=== PATIENT | female | born 1985 | race Caucasian/White ===

== ENCOUNTER 2023-09-07 21:45 | Emergency (ER) | payer OTHER, SELFPAY ==
[2023-09-07 21:48] VITALS: BP 122/80
[2023-09-07 22:04] LABS: % Basophils 0.2 % (0-2); % Eosinophils 0.7 % (0-6); % Immature Granulocytes 0.4 % (0-0.5); % Lymphocytes 4.8 % (20.5-51.1); % Monocytes 3.7 % (1.7-9.3); % Neutrophils 90.2 % (42.2-75.2); Absolute Eosinophils 0.1 10^3/uL (0-0.7); Absolute Lymphocytes 0.5 10^3/uL (1.2-3.4); Absolute Monocytes 0.4 10^3/uL (0.1-0.6); Absolute Neutrophils 9.4 10^3/uL (1.4-6.5); Hematocrit 40.3 % (37.0-47.0); Hemoglobin 14.4 g/dL (12.0-16.0); Mean Corp Hgb Conc. 35.7 g/dL (33.0-37.0); Mean Corpuscular Hgb 31.9 pg (27.0-31.0); Mean Corpuscular Volume 89.4 fL (81.0-99.0); Nucleated Red Blood Cells % 0 %; Platelet Count 147 10^3/uL (130-400); Red Blood Cell Count 4.51 10^6/uL (4.20-5.40); Red Cell Dist. Width 12.3 % (11.5-14.5); White Blood Cell Count 10.4 10^3/uL (4.8-10.8)
[2023-09-07 22:16] LABS: HCG, Serum Qualitative Screen Negative
[2023-09-07 22:19] LABS: ALT (SGPT) 13 U/L (0-35); AST (SGOT) 24 U/L (14-36); Albumin 4.4 g/dl (3.5-5.0); Alkaline Phosphatase 66 U/L (38-126); Blood Urea Nitrogen 14 mg/dl (7-17); Calcium 8.9 mg/dl (8.4-10.2); Carbon Dioxide 25 mmol/L (22-30); Chloride 104 mmol/L (98-107); Glucose 120 mg/dl (70-99); Lipase 60 U/L (23-300); Sodium 133 mmol/L (135-145); Total Bilirubin 0.8 mg/dl (0.2-1.3); eGFR > 60.00
[2023-09-07] MEDS: MORPHINE SULFATE 4 MG IV (23:06)
[2023-09-07 23:14] LABS: Urine Albumin Negative (Neg - Trace); Urine Bilirubin Negative (Negative); Urine Character Clear (Clear); Urine Color Yellow; Urine Glucose Negative (Negative); Urine Ketone Trace (Negative); Urine Leukocyte Negative (Negative); Urine Nitrite Negative (Negative); Urine Occult Blood Negative (Negative); Urine Specific Gravity 1.015 (<1.030); Urine Urobilinogen Negative (Neg - 1+)
[2023-09-07] MEDS: PHENERGAN 51 MG IV (23:20)
[2023-09-07 23:22] VITALS: BP 115/64
--- NOTE | 2023-09-08 00:23 | ED.GENMED ---
History of Present Illness
<MARA Duarte - Last Filed: 09/08/23 03:10>
General
Chief Complaint: Abdominal Pain
Source: patient
Exam Limitations: none
Time Seen by Provider: 09/07/23 22:58
Nursing documentation reviewed up to this point in time: agreed with
Travel History
Have you had any contact with someone who has COVID-19?: No
Do you have any symptoms of coronavirus? Fever > 100 degrees, chills, cough, shortness of breath, sore throat, loss of taste or smell, muscle aches, or headache?: No
History of Present Illness
History of Present Illness:
38 y/o F presents to ED complaining of RUQ pain since 1699. Patient reports pain come on suddenly and is radiating to her upper back. She reports she was moaning and very uncomfortable. Patient has also had multiple episode of nonbloody diarrhea
since onset of symptoms along with associated nausea. Patient has been dry heaving but has not vomited. She is also reporting a severe headache. Patient reports position change does not help with pain. She has not taken any medications for her pain.
She denies chest pain, palpitations, hematemesis, bloody diarrhea, or vomiting.
If applicable-neuro sx onset
Onset of symptoms known: Yes
Date of onset of symptoms: 09/07/23
Time of onset of symptoms: 17:00
Review of Systems
<MARA Duarte - Last Filed: 09/08/23 03:10>
Review of Systems
Allergies reviewed?: Yes
All Other Systems: ROS reviewed and negative except as documented in HPI and ROS
Constitutional: Reports no symptoms
EENT: Reports no symptoms
Respiratory: Reports no symptoms
Cardiac: Reports no symptoms
ABD/GI: Reports abdominal pain, nausea and diarrhea
: Reports no symptoms
Musculoskeletal: Reports no symptoms
Skin: Reports no symptoms
Neurological: Reports no symptoms
Endocrine: Reports no symptoms
Hematologic/Lymphatic: Reports no symptoms
Psychiatric: Reports no symptoms
Phy Exam
<MARA Duarte - Last Filed: 09/08/23 03:10>
General Physical Exam
General Presentation: well appearing and mild distress
General age: appears stated age
General Skin: warm and dry
General Habitus: normal
General Mental: alert
General Hydration: appears well hydrated
Cardiovascular Exam
Cardiovascular Exam: regular rate/rhythm, no edema, no gallop, no murmur and normal peripheral pulses
Pulmonary Exam
Pulmonary Exam: lungs clear, no respiratory distress, no rales, no crackles and no rhonchi
Gastrointestinal Exam
Gastrointestinal Exam: normal bowel sounds, soft, non distended, cva tenderness (right sided) and tender (moderate tenderness in RUQ, mildly tender in epigastric )
Neurological Exam
Neurological Exam: alert and oriented x3
Skin Exam
Skin Exam: normal color, warm/dry and no rash
Psychiatric Exam
Psychiatric Exam: normal mood/affect
Course
<MARA Duarte - Last Filed: 09/08/23 03:10>
Orders/Labs/Results
Orders:
Orders
09/07/23 21:53
Test Result ONCE
09/07/23 21:57
Complete Blood Count/With Diff Urgent
Comprehensive Metabolic Panel Urgent
HCG, Serum Qualitative Screen Urgent
Lipase Urgent
09/07/23 22:58
Morphine Sulfate 4 mg IV NOW STA
Prochlorperazine [Compazine] 10 mg IV NOW STA
US Abdomen Complete/Upper Urgent
Comment:
Reason For Exam: ruq pain
09/07/23 23:04
Promethazine [Phenergan] 25 mg 0.9% Sodium Chloride 50 ml [Nss] 50 ml IV NOW
09/07/23 23:09
Urinalysis Reflex To Culture Urgent
Date Specimen was Collected: 09/07/23
Time Specimen was Collected: 22:38
09/08/23 00:48
ECG [Electrocardiogram (*1)] Urgent
Reason for Study: Abdominal Pain
EKG [Electrocardiogram (*1)] Urgent
Reason for Study: Abdominal Pain
CT Abd/pelvis W Iv Cont Urgent
Comment:
Reason For Exam: Right abd and flank pain
EKG- Treatment ONCE
Abnormal Lab Results
09/07/23 09/07/23
21:57 23:09
MCH 31.9 H pg
(27.0-31.0)
Absolute Neuts (auto) 9.4 H 10^3/uL
(1.4-6.5)
Absolute Lymphs (auto) 0.5 L 10^3/uL
(1.2-3.4)
Neutrophils % 90.2 H %
(42.2-75.2)
Lymphocytes % 4.8 L %
(20.5-51.1)
Sodium 133 L mmol/L
(135-145)
Glucose 120 H mg/dl
(70-99)
Urine Ketones Trace A
(Negative)
09/07/23 21:57
09/07/23 21:57
Vital Signs
Initial and Last Documented VS:
Initial Vital Signs
Temp Pulse Resp BP Pulse Ox
99.1 F 107 19 122/80 100
09/07/23 21:48 09/07/23 21:48 09/07/23 21:48 09/07/23 21:48 09/07/23 21:48
Last Documented Vital Signs
Temp Pulse Resp BP Pulse Ox
99.1 F 82 19 114/70 96
09/07/23 21:48 09/08/23 01:54 09/08/23 01:54 09/08/23 01:00 09/08/23 01:45
<Jose De Jesus Ramsey, DO - Last Filed: 09/08/23 01:52>
Orders/Labs/Results
Orders:
Orders
09/07/23 21:53
Test Result ONCE
09/07/23 21:57
Complete Blood Count/With Diff Urgent
Comprehensive Metabolic Panel Urgent
HCG, Serum Qualitative Screen Urgent
Lipase Urgent
09/07/23 22:58
Morphine Sulfate 4 mg IV NOW STA
Prochlorperazine [Compazine] 10 mg IV NOW STA
US Abdomen Complete/Upper Urgent
Comment:
Reason For Exam: ruq pain
09/07/23 23:04
Promethazine [Phenergan] 25 mg 0.9% Sodium Chloride 50 ml [Nss] 50 ml IV NOW
09/07/23 23:09
Urinalysis Reflex To Culture Urgent
Date Specimen was Collected: 09/07/23
Time Specimen was Collected: 22:38
09/08/23 00:48
ECG [Electrocardiogram (*1)] Urgent
Reason for Study: Abdominal Pain
EKG [Electrocardiogram (*1)] Urgent
Reason for Study: Abdominal Pain
CT Abd/pelvis W Iv Cont Urgent
Comment:
Reason For Exam: Right abd and flank pain
EKG- Treatment ONCE
Abnormal Lab Results
09/07/23 09/07/23
21:57 23:09
MCH 31.9 H pg
(27.0-31.0)
Absolute Neuts (auto) 9.4 H 10^3/uL
(1.4-6.5)
Absolute Lymphs (auto) 0.5 L 10^3/uL
(1.2-3.4)
Neutrophils % 90.2 H %
(42.2-75.2)
Lymphocytes % 4.8 L %
(20.5-51.1)
Sodium 133 L mmol/L
(135-145)
Glucose 120 H mg/dl
(70-99)
Urine Ketones Trace A
(Negative)
09/07/23 21:57
09/07/23 21:57
Vital Signs
Initial and Last Documented VS:
Initial Vital Signs
Temp Pulse Resp BP Pulse Ox
99.1 F 107 19 122/80 100
09/07/23 21:48 09/07/23 21:48 09/07/23 21:48 09/07/23 21:48 09/07/23 21:48
Last Documented Vital Signs
Temp Pulse Resp BP Pulse Ox
99.1 F 82 19 114/70 96
09/07/23 21:48 09/08/23 01:54 09/08/23 01:54 09/08/23 01:00 09/08/23 01:45
<MARA Duarte - Last Filed: 09/08/23 03:10>
MDM/Problems Addressed
Differential Diagnosis Includes:
Cholecystitis/Biliary colic
Pyelonephritis
Nephrolithiasis
SBO
Viral gastro
<MARA Duarte - Last Filed: 09/08/23 03:10>
*Critical Care Note
Total Time (30-74mins, 75-104mins- exclusive of procedures): Not Applicable
ED Attending Note
<MARA Duarte - Last Filed: 09/08/23 03:10>
-
Portions of this chart may have been created with voice recognition software.� Occasional wrong word or��sound alike� substitutions may have occurred due to the inherent limitations of voice recognition software.
<Jose De Jesus Ramsey DO - Last Filed: 09/08/23 01:52>
ED Attending Note
Patient seen and examined by attending physician: Yes
I performed the substantive portion of visit, reviewed & personally made and approve the management plan that is documented in note by myself or ZURDO.: Yes
ED Attending Note:
Pleasant 38-year-old female presents with right upper quadrant abdominal pain for the last 5 hours. She states that the pain came on suddenly and radiated to her upper back. Patient received morphine which relieved her pain. Patient has been
having episodes of nonbloody, watery diarrhea for the last few days. She does have dry heaving without actual vomiting. Patient was seen in conjunction with the PA student. I have reviewed and agree with the history and treatment plan presented.
On my independent physical exam, patient is awake, alert, and oriented x3, after morphine patient not complaining of any abdominal pain. Good bowel sounds x 4 quadrants. She does have right CVA tenderness.
Vital signs are stable. Patient not hypoxic
Nursing note reviewed. I agree with nursing documentation up to this point in time.
Home Meds and allergies reviewed.
NUMBER AND COMPLEXITY OF PROBLEMS ADDRESSED AT THE ENCOUNTER
� Chronic conditions affecting care: None
� Acute Exacerbation and/or Progression of Chronic Illness:
� Differential Diagnosis includes: Biliary colic, GERD, constipation,
AMOUNT AND/OR COMPLEXITY OF DATA TO BE REVIEWED AND ANALYZED
I performed an independent evaluation of the following and my interpretation is:
EKG:
CT:CT ABDOMEN/PELVIS WITH CONTRAST
IMPRESSION:
1. Mildly prominent loops of small bowel within the central abdomen likely represents underlying enteritis. Small free fluid in the deep pelvis.
2. No bowel obstruction. Normal gallbladder and appendix.
Incidentals:
- No obstructive uropathy.
- No hepatic or pancreatic mass.
- No abdominal aortic aneurysm.
- No acute osseous abnormality.
- No acute abnormality within the visualized lungs.
- No acute abnormality within the visualized soft tissues.
X-rays:
ULTRASOUND ABDOMEN
IMPRESSION:
Normal gallbladder. No gallstones, gallbladder wall thickening, or pericholecystic fluid. Negative sonographic Sands's sign.
No biliary ductal dilatation. The visualized common duct measures 4 mm in caliber.
Normal liver, spleen, and partially visualized pancreas.
Normal bilateral kidneys. No hydronephrosis.
Laboratory Studies: Normal LFTs including T. bili, AST, ALT, negative
Other:
Review of other/old records:
Clinical information was obtained by an independent historian:
Prescriptions/Medications Considered but not given:
Further testing considered but not performed:
RISK OF COMPLICATIONS AND/OR MORBIDITY OR MORTALITY OF PATIENT MANAGEMENT
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
Discussion with other providers:
Escalation of care including admission/observation vs risk of discharge considered:
CRITICAL CARE NOTE:
Total Time (exclusive of procedures):
Update:
Discharge Plan
Departure
Patient Disposition: Home (Routine Discharge)
Date of Disposition: 09/08/23
Time of Disposition: 01:50
Patient with high blood pressure during this ER visit?: No
Discharge Problem:
Enteritis, Abdominal pain
Instructions: Norovirus (DC), Abdominal Pain
Prescriptions:
New
promethazine 12.5 mg tablet
12.5 mg PO TID Qty: 10 0RF
Referrals:
Ken Perry DO [Family Provider] -
Activity Restrictions/Additional Instructions:
It was a pleasure meeting you and taking part in your care. We hope for your continued healing and wellness.
Please read discharge instructions in their entirety. However, they are for general education and may not describe your exact diagnosis at discharge. Information on your ER visit and medical conditions were discussed with you along with appropriate
follow up information...
If indicated, please take your medications as instructed and indicated on discharge paperwork.
Please schedule a follow up appointment as directed. Call to schedule an appointment
Please return to the emergency department with ANY change in, persisting, or worsening of symptoms. If any of your symptoms do not improve, or persist, or become more severe within 6-12 hours, please return to the emergency department for further
care.
Please return to the emergency department if you develop a headache, neck pain/stiffness, fever greater than 100.4F, chest pain, shortness of breath, persistent nausea, vomiting, slurred speech, difficulty walking, numbness/tingling, weakness, signs
of infection or any other symptoms that are worrisome to you.
If you have any questions or concerns please do not hesitate to call the Hospital at or E-mail me directly at [email or web address]
Interventions
Interventions:
*Risk Screen - Suicide Last Done: 09/07/23 21:48
*General Assessment Last Done: 09/07/23 21:48
*Neglect/Abuse Screening Last Done: 09/07/23 21:48
ED- Fall Risk Assessment Last Done: 09/07/23 23:10
*ED COVID-19 Vaccine History Last Done: 09/07/23 21:48
*Nursing Disposition Last Done: 09/08/23 01:54
[facility]-Ymujvd-Ygrsvvdpck Assessment Last Done: 09/07/23 23:10
Discharge Date and Time
Discharge Date/Time: 09/08/23 02:01
[2023-09-08 00:33] VITALS: BP 119/65
[2023-09-08 00:35] VITALS: BP 119/65
[2023-09-08 01:00] VITALS: BP 114/70
== END 2023-09-08 02:01 | disposition home or self-care (01) ==
LOC: EMR 21:45
PROVIDERS: Emergency Medicine; EMERGENCY PHYSICIAN Student in an Organized Health Care Education/Training Program; FAMILY PHYSICIAN Family Medicine
DX: R10.11 Right upper quadrant pain (principal); K52.9 Noninfective gastroenteritis and colitis, unspecified
CPT/HCPCS: 99285; 96365; 96375; 74177; 76700; 80053; 81003; 83690; 84703; 85025; 93005; Q9967

== ENCOUNTER 2023-09-09 17:32 | Day surgery (SDC) | payer OTHER, SELFPAY ==
[2023-09-09] VITALS (18 sets, daily range): BP systolic 88–126; BP diastolic 54–95
--- NOTE | 2023-09-09 13:47 | ED.GENMED ---
History of Present Illness
General
Chief Complaint: Abdominal Pain
Source: patient
Exam Limitations: none
Time Seen by Provider: 09/09/23 13:27
Nursing documentation reviewed up to this point in time: agreed with
Travel History
Have you had any contact with someone who has COVID-19?: No
Do you have any symptoms of coronavirus? Fever > 100 degrees, chills, cough, shortness of breath, sore throat, loss of taste or smell, muscle aches, or headache?: No
History of Present Illness
History of Present Illness:
Patient was seen in ED on 09/07 for report of right abdominal pain. Initial CT reading : MIldly prominent loops of small bowel within the central abdomen likely representing enteritis. Normal gallbladder and appendix (Night radiology). CT read by
radialogy in the AM: MIld soft tissue thickening at the posterior inferior cecal margin which may be related to underdistention. Slightly thickened adjacent/contijuous appendix cannot be entirely excluded. Rcommeding ruling out early
appendicitis. Patient notified by PCP to return to ED. She reports her abdominal pain has improved. Now with right lower back pain. Temp max 99. Still with nausea. No vomiting or diarrhea. No pain with urination however she was placed on
Macrobid by PCP on the for suspected UTI. Missed dose today. Brought to ED by spouse for eval.
Past History
Past History
ED Past Medical History: Psychiatric (anxiety)
Review of Systems
Review of Systems
Allergies reviewed?: Yes
All Other Systems: ROS reviewed and negative except as documented in HPI and ROS
Constitutional: Reports no symptoms
EENT: Reports no symptoms
Respiratory: Reports no symptoms
Cardiac: Reports no symptoms
ABD/GI: Reports abdominal pain (Mild right sided abd. pain, right low back pain)
: Reports no symptoms
Musculoskeletal: Reports no symptoms
Skin: Reports no symptoms
Neurological: Reports no symptoms
Psychiatric: Reports no symptoms
Phy Exam
General Physical Exam
General Presentation: mild distress (States 'i just feel crappy')
General age: appears stated age
General Skin: warm
General Habitus: normal
General Mental: alert
Cardiovascular Exam
Cardiovascular Exam: regular rate/rhythm and no edema
Pulmonary Exam
Pulmonary Exam: lungs clear and no respiratory distress
Gastrointestinal Exam
Gastrointestinal Exam: normal bowel sounds, soft, no organomegaly, no pulsatile mass, non distended and cva tenderness (right)
Palpation: left upper quadrant: No tenderness, left lower quadrant: No tenderness, right upper quadrant: Minimal tenderness and right lower quadrant: Minimal tenderness
Musculoskeletal Exam
Musculoskeletal Exam: full ROM and neuro vasc intact
Skin Exam
Skin Exam: normal color, warm/dry and no rash
Psychiatric Exam
Psychiatric Exam: normal mood/affect
Course
Orders/Labs/Results
Orders:
Orders
09/09/23 14:00
Complete Blood Count/With Diff Urgent
Comprehensive Metabolic Panel Urgent
Lipase Urgent
Urinalysis Reflex To Culture Urgent
Date Specimen was Collected: 09/09/23
Time Specimen was Collected: 13:48
0.9% Sodium Chloride 500 ml [Nss] 500 ml IV BOLUS
09/09/23 15:54
Piperacillin/Tazo 3.375 Gram [Zosyn] 3.375 gram in 50 ml IV NOW
09/09/23 16:27
Diphenhydramine [Benadryl] 25 mg IV PACU-ONCEPRN PRN
HYDROmorphone [Dilaudid] 0.25 mg IV PACU-Q5MPRN PRN
HYDROmorphone [Dilaudid] 0.5 mg IV PACU-Q5MPRN PRN
Meperidine [Demerol] 12.5 mg IV PACU-Q5MPRN PRN
Notify MD As Directed
Notify physician if: for SDS patients with known or suspected sleep obstructive sleep apnea, monitor in the
PACU.
Notify MD for any apneic/desaturation episodes
O2 Therapy [RESP] Urgent
Titrate/Wean O2 to maintain O2 sat greater than (%): 92
Special Instructions: -Provide supplemental oxygen to achieve O2 sat of 92% or greater.
-After 15 min, may wean O2 and discontinue if patient is able to maintain O2 sat of 92%
or greater during recovery period.
If patient is a discharge home, without oxygen therapy, notify anestheiologist if
unable to maintain O2 SAT of 92% or greater on room air for MD clearance.
09/09/23 16:30
Normosol (Mult Electrolytes) [Normosol-R] 1,000 ml IV PER PROTOCOL
09/09/23 16:47
Code Status As Directed
Resuscitation Status: Full Code
HYDROmorphone [Dilaudid] 0.5 mg IV Q2HPRN PRN
Activity As Directed
Activity Level: Out of Bed-Early Mobility
Intake/ Output As Directed
Frequency: Per unit guidelines
Vital Signs As Directed
Frequency: Per unit guidelines
09/09/23 16:49
Promethazine [Phenergan] 6.25 mg 0.9% Sodium Chloride 50 ml [Nss] 50 ml IV Q4HPRN
09/09/23 16:50
Level of Care Change As Directed
Level of Care: Post Proc/Surg Recovery
Physician / Group: Dr. Fisher
Diagnosis: Acute appendicitis
Reason for Overnight Stay: Standard of Care
NPO
Allow oral meds: Yes
Allow clear liquids: No
09/09/23 17:00
Normosol (Mult Electrolytes) [Normosol-R] 1,000 ml IV 75 mls/hr
09/09/23 18:00
Acetaminophen [Tylenol] 650 mg PO Q6
09/09/23 19:44
Lidocaine 2% Mpf [Xylocaine Mpf 2%] 100 mg .ROUTE .STK-MED ONE
Ondansetron Injectable [Zofran] 4 mg .ROUTE .STK-MED ONE
Propofol [Diprivan] 20 ml .ROUTE .STK-MED
09/09/23 19:48
Fentanyl Citrate/Pf [Sublimaze] 100 mcg .ROUTE .STK-MED ONE
09/09/23 19:49
Midazolam HCl [Versed] 2 mg .ROUTE .STK-MED ONE
09/09/23 20:46
Dexamethasone Sod Phosphate [Decadron] 20 mg .ROUTE .STK-MED ONE
Famotidine [Pepcid] 20 mg .ROUTE .STK-MED ONE
09/09/23 20:47
Rocuronium [place] [Rocuronium] 50 mg .ROUTE .STK-MED ONE
09/09/23 20:55
OR Pathology Routine
Pre-Operative Diagnosis: acute appendiitis
Post-Operative Diagnosis: same
Operative Procedure: laparoscopic appendectomy
Surgeon: kuldip
Circulating Nurse: santa
Specimen Type: appendix
09/09/23 20:58
HYDROmorphone [Dilaudid] 1 mg .ROUTE .STK-MED ONE
09/09/23 21:10
Sugammadex Sodium [Bridion] 200 mg .ROUTE .STK-MED ONE
09/09/23 21:50
HYDROmorphone [Dilaudid] 0.5 mg .ROUTE .STK-MED ONE
09/09/23 22:00
Piperacillin/Tazo 3.375 Gram [Zosyn] 3.375 gram in 50 ml IV Q6H
09/10/23 03:08
Simethicone [Mylicon] 80 mg PO QIDPRN PRN
09/10/23 05:32
Complete Blood Count/With Diff IN AM
09/10/23 05:33
Basic Metabolic Panel IN AM
09/10/23 Breakfast
Regular
At Your Request: Full Participation
09/10/23 06:41
Discharge Patient As Directed
Discharge patient after: breakfast
Is patient a candidate for the influenza vaccine?: No
Month/Year vaccine administered for 3055-6417 flu season: 3551-7596 Season/Unsure
Do you have a designated caregiver: Yes-same as spokesperson
Abnormal Lab Results
09/09/23 09/10/23 09/10/23
14:00 05:32 05:33
WBC 4.0 L 10^3/uL 3.4 L 10^3/uL
(4.8-10.8) (4.8-10.8)
RBC 3.98 L 10^6/uL 3.96 L 10^6/uL
(4.20-5.40) (4.20-5.40)
Hct 36.0 L % 35.9 L %
(37.0-47.0) (37.0-47.0)
MCH 31.9 H pg 31.8 H pg
(27.0-31.0) (27.0-31.0)
Plt Count 125 L 10^3/uL
(130-400)
MPV 10.5 H fL
(7.4-10.4)
Absolute Lymphs (auto) 0.6 L 10^3/uL
(1.2-3.4)
Neutrophils % 80.4 H %
(42.2-75.2)
Lymphocytes % 17.0 L %
(20.5-51.1)
Monocytes % 12.3 H %
(1.7-9.3)
Sodium 134 L mmol/L
(135-145)
Potassium 3.2 L mmol/L
(3.5-5.1)
Glucose 100 H mg/dl 123 H mg/dl
(70-99) (70-99)
Calcium 8.3 L mg/dl 7.9 L mg/dl
(8.4-10.2) (8.4-10.2)
Total Protein 6.0 L g/dl
(6.3-8.2)
Urine Ketones Trace A
(Negative)
09/10/23 05:32
09/10/23 05:33
Vital Signs
Initial and Last Documented VS:
Initial Vital Signs
Temp Pulse Resp BP Pulse Ox
99 F 94 16 126/95 98
09/09/23 13:19 09/09/23 13:19 09/09/23 13:19 09/09/23 13:19 09/09/23 13:19
Last Documented Vital Signs
Temp Pulse Resp BP Pulse Ox
98.1 F 63 18 120/71 100
09/10/23 07:46 09/10/23 07:46 09/10/23 07:46 09/10/23 07:46 09/10/23 07:46
*Radiology
Radiology exam reviewed: radiology read reviewed
*Pulse Oximetry
Patient hypoxic: no
*Critical Care Note
Total Time (30-74mins, 75-104mins- exclusive of procedures): Not Applicable
Update Note
Update Note:
Patient seen in dept by Dr. Urbina. Will admit to his service. To OR tonight for acute appendicitis.
ED Attending Note
-
Portions of this chart may have been created with voice recognition software.� Occasional wrong word or��sound alike� substitutions may have occurred due to the inherent limitations of voice recognition software.
Discharge Plan
Departure
Patient Disposition: Admit
Date of Disposition: 09/09/23
Time of Disposition: 15:55
Admit to: OR
Presentation/result/management discussed w/ accepting /DO: Carlitos
Patient with high blood pressure during this ER visit?: No
Discharge Problem:
Acute appendicitis
Interventions
Interventions:
*Risk Screen - Suicide Last Done: 09/09/23 13:19
*General Assessment Last Done: 09/09/23 13:19
*Neglect/Abuse Screening Last Done: 09/09/23 13:19
ED- Fall Risk Assessment Last Done: 09/09/23 14:12
*ED COVID-19 Vaccine History Last Done: 09/09/23 13:39
*Nursing Disposition Last Done: 09/09/23 19:30
[facility]-Dradhj-Howumkxblr Assessment Last Done: 09/09/23 15:47
Discharge Date and Time
Discharge Date/Time: 09/09/23 19:30
[2023-09-09] MEDS: NSS 500 IV (14:07)
[2023-09-09 14:16] LABS: % Basophils 0.3 % (0-2); % Eosinophils 2.3 % (0-6); % Immature Granulocytes 0.3 % (0-0.5); % Lymphocytes 30.2 % (20.5-51.1); % Monocytes 12.3 % (1.7-9.3); % Neutrophils 54.6 % (42.2-75.2); Absolute Eosinophils 0.1 10^3/uL (0-0.7); Absolute Lymphocytes 1.2 10^3/uL (1.2-3.4); Absolute Monocytes 0.5 10^3/uL (0.1-0.6); Absolute Neutrophils 2.2 10^3/uL (1.4-6.5); Hemoglobin 12.7 g/dL (12.0-16.0); Mean Corp Hgb Conc. 35.3 g/dL (33.0-37.0); Mean Corpuscular Hgb 31.9 pg (27.0-31.0); Mean Corpuscular Volume 90.5 fL (81.0-99.0); Mean Platelet Volume 10.4 fL (7.4-10.4); Nucleated Red Blood Cells % 0 %; Platelet Count 125 10^3/uL (130-400); Red Blood Cell Count 3.98 10^6/uL (4.20-5.40); Red Cell Dist. Width 12.4 % (11.5-14.5)
[2023-09-09 14:18] LABS: Urine Albumin Trace (Neg - Trace); Urine Bilirubin Negative (Negative); Urine Character Clear (Clear); Urine Color Yellow; Urine Glucose Negative (Negative); Urine Ketone Trace (Negative); Urine Leukocyte Negative (Negative); Urine Nitrite Negative (Negative); Urine Occult Blood Negative (Negative); Urine Specific Gravity 1.015 (<1.030); Urine Urobilinogen Negative (Neg - 1+)
[2023-09-09 14:27] LABS: ALT (SGPT) 12 U/L (0-35); AST (SGOT) 20 U/L (14-36); Albumin 3.6 g/dl (3.5-5.0); Alkaline Phosphatase 57 U/L (38-126); Blood Urea Nitrogen 12 mg/dl (7-17); Calcium 8.3 mg/dl (8.4-10.2); Carbon Dioxide 27 mmol/L (22-30); Chloride 107 mmol/L (98-107); Glucose 100 mg/dl (70-99); Lipase 63 U/L (23-300); Potassium 3.2 mmol/L (3.5-5.1); Sodium 135 mmol/L (135-145); Total Bilirubin 0.3 mg/dl (0.2-1.3); eGFR > 60.00
[2023-09-09] MEDS: ZOSYN 50 IV ×2 (16:22→21:57)
--- NOTE | 2023-09-09 16:32 | HPS.HSE ---
Family Physician
-
Family Physician: Ken Perry
Chief Complaint
-
Abdominal pain
History of Present Illness
This is a 38-year-old female who presents with a 3-day history of right-sided abdominal pain initially thought to be more right upper quadrant radiating to her back. There was some associated nausea as well as nonbloody diarrhea. She was seen in
emergency department and a CT scan was performed but read as normal. The scan was read reviewed by one of our daytime radiologist who saw some concerning inflammation at the base of the cecum concerning for possible appendicitis and so the patient
was contacted and asked to return to the emergency department for further evaluation. Overall she states that her pain is improved but she still has pain rating to her lower back. The patient denies Fever though does endorse a high-grade temp +99
at home, Chest Pain, Shortness Of Breath, Vomiting, changes in urinary habits, unintentional weight loss, jaundice, icterus, acolic stools. She has never had a colonoscopy and she denies any family history of IBD.
Medical History
Past Medical History
Past Medical History: Reports None
Past Surgical History: Reports
Social History
Tobacco: Non-smoker
Alcohol: Occasional
Personal:
Living: With Family
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
Family History
Family History: Not pertinent
Allergies / Home Medications
Allergies reflects when Allergies were last updated in [facility].
Home Medications with original date entered in [employer]
Allergy/Medication List:
No known drug allergies.
Review of Systems
-
A 12 point ROS was completed and negative except as noted: Yes
Physical Exam
Vital Signs
Vital Signs
Temp Pulse Resp BP Pulse Ox
99 F 94 16 126/95 98
09/09/23 13:19 09/09/23 13:19 09/09/23 13:19 09/09/23 13:19 09/09/23 13:19
Physical Exam
General: Well Developed
HEENT: NormoCephalic
Respiratory: Non Labored Respirations
GI: Soft, Non Distended and Tender (Mildly tender to palpation in the right lower quadrant. No rebound or guarding.)
Laboratory Results
-
09/09/23 14:00
09/09/23 14:00
Laboratory Results
Total Bilirubin 0.3 mg/dl (0.2-1.3) 09/09/23 14:00
AST 20 U/L (14-36) 09/09/23 14:00
ALT 12 U/L (0-35) 09/09/23 14:00
Alkaline Phosphatase 57 U/L (38-126) 09/09/23 14:00
Lipase 63 U/L (23-300) 09/09/23 14:00
Data Reviewed
-
CT Scan: Image Personally Visualized and interpreted, Report Reviewed by me, Discussed with Patient and Discussed with Family
Ultrasound: Image Personally Visualized and interpreted, Report Reviewed by me, Discussed with Patient and Discussed with Family
Lab Data: Labs Reviewed by me
Impression/Plan
-
IMPRESSION: This is a 38-year-old female who presents with likely acute appendicitis
PLAN: Will admit for postoperative recovery.
N.p.o., IV fluids, IV Zosyn.
Will plan for a laparoscopic appendectomy.
Risks/Benefits/Alternatives, expected postoperative course and possible complications (bleeding, infection, injury to surrounding structures, acute/chronic pain) discussed at length. Patient wishes to proceed with surgery. All questions answered.
Consent obtained.
I spent roughly 75 minutes in total for the care of this patient today including direct patient care and counseling, reviewing labs, imaging, coordination of care, as well as documentation.
--- NOTE | 2023-09-09 21:27 | W.SUR.PREOP ---
Pre-Operative Surgical Note
-
I have examined this patient prior to the performance of the scheduled procedure.
The patient's condition is unchanged from the time of the current History and
Physical and the patient is able to undergo the scheduled procedure.
--- NOTE | 2023-09-09 21:27 | W.IMMPOSTOP ---
Surgical Immed Post Op Note
-
Primary Surgeon: Fabrizio Fisher MD
Assisting Surgeon: None
Pre-op Diagnosis: Acute appendicitis
Post-op Diagnosis: Same
Procedure Performed: Laparoscopic appendectomy
Anesthesia Type: General
Specimen / Cultures: Appendix
Estimated Blood Loss: 1 cc
Complications: None
Operative Findings: Fairly normal-appearing appendix, slightly inflamed at the tip. No other intra-abdominal abnormalities noted other than some scar tissue with small bowel adhesions to her scar.
POST OP PLAN:
Imaging: None
Labs: Routine AM
Diet: Advance to Regular as tolerated
Analgesia: Tylenol 650mg q6 Maynor, Gauri 5mg q6 PRN, Dilaudid 0.5mg q2h PRN
Neuro/vascular checks: q4h
AC/AP: Hold Therapeutic AC, Ok for DVT PPx
Activity: Ad Michelle
Wound/Incisions/Drains: Routine
Abx: Continue Zosyn x 1 dose
Dispo: RNF, anticipate discharge home tomorrow.
--- NOTE | 2023-09-09 21:28 | OR.RPT ---
Operative Report
Operative Report
Patient Name: Sandra Stevenson
: 1985
Date of Operation: 09/09/2023
Preoperative Diagnosis: Acute Appendicitis
Postoperative Diagnosis: Same
Procedure(s):
Laparoscopic Appendectomy
Surgeon(s):
Dr. Fisher
Insole Buffer(s):
None
Anesthesia: General
Estimated Blood Loss: 1 cc
Urine Output: None
Drains/Lines/Implants: None
Specimens:
1. Appendix
HPI/Surgical Indications:
This is a 38-year-old female who presents with a 4-day history of abdominal pain. Exam, labs and imaging are consistent with acute appendicitis. Risks/Benefits/Alternatives were discussed at length, and the patient agreed to proceed with surgery.
Findings:
Acute non-perforated appendicitis
Procedure Description:
The patient was placed in the supine position, with the left arm tucked, and general anesthesia was induced. The abdomen was prepared and draped in a sterile fashion so as to expose the entire abdomen. A surgical time out was taken. Abdominal access
was obtained with an 12mm infra-umbilical Pasquale Entry. After confirming no injury on entrance, two additional 5mm ports were placed in the suprapubic area just off midline and in the left lower quadrant. The patient was placed in Trendelenberg with
the right slightly up. After lysing adhesions from the small bowel to the right pelvic sidewall, the appendix was identified and a window was created in the mesoappendix. The appendix was mildly inflamed at the tip inflamed but not perforated.
Using a harmonic energy device, the meso appendix was divided. The base of the appendix appeared uninvolved and was ligated/divided using 3 0-PDS Endoloops and the energy device except default. The appendix was placed in a specimen retrieval bag.
We did a cursory inspection of the abdomen and noted no other pathology other than some mild flimsy adhesions of omentum and small bowel to the prior scar. These were left in place. Hemostasis was confirmed and the ports were removed
under visualization. The specimen was passed off the field. The umbilical port was closed with a [id number] 0-PDS and the skin for all three ports was closed with interrupted monocryls and covered with dermabond. The patient was awoken from
anesthesia in good condition and transported to the recovery area.
I was the attending physician and performed the procedure with no assistance. I was present for all portions of the case
Fabrizio Fisher MD
[2023-09-09] MEDS: NORMOSOL-R 1000 IV (21:49)
[2023-09-09] MEDS: DILAUDID 0.5 MG IV ×2 (21:50→23:41)
[2023-09-09] MEDS: TYLENOL 650 MG PO (22:14)
--- NOTE | 2023-09-09 22:30 | PTCARENOTE ---
Pt. received from PACU to [facility]. Pt. drowsy but arousable to verbal stimuli, slightly tearful, even and nonlabored breathing on RA, states slight abdominal pain, no nausea, and VSS. Pt. and spouse oriented to room and unit policies, bed locked and
in lowest position, bed rails in place, call light within reach, and questions answered. Will continue to monitor.
[2023-09-09] MEDS: PHENERGAN 50.25 MG IV (22:34)
[2023-09-10 00:15] VITALS: BP 116/73
[2023-09-10] MEDS: TYLENOL PO (00:45)
[2023-09-10] MEDS: DILAUDID 0.5 MG IV ×2 (02:56→06:26)
[2023-09-10] MEDS: ZOSYN 50 IV (03:01)
[2023-09-10 03:20] VITALS: BP 111/71
[2023-09-10] MEDS: PHENERGAN 50.25 MG IV (03:42)
[2023-09-10] MEDS: MYLICON 80 MG PO ×2 (03:42→07:48)
[2023-09-10 06:19] LABS: % Immature Granulocytes 0.3 % (0-0.5); % Monocytes 2.3 % (1.7-9.3); % Neutrophils 80.4 % (42.2-75.2); Absolute Lymphocytes 0.6 10^3/uL (1.2-3.4); Absolute Monocytes 0.1 10^3/uL (0.1-0.6); Absolute Neutrophils 2.8 10^3/uL (1.4-6.5); Hematocrit 35.9 % (37.0-47.0); Hemoglobin 12.6 g/dL (12.0-16.0); Mean Corp Hgb Conc. 35.1 g/dL (33.0-37.0); Mean Corpuscular Hgb 31.8 pg (27.0-31.0); Mean Corpuscular Volume 90.7 fL (81.0-99.0); Mean Platelet Volume 10.5 fL (7.4-10.4); Nucleated Red Blood Cells % 0 %; Platelet Count 132 10^3/uL (130-400); Red Blood Cell Count 3.96 10^6/uL (4.20-5.40); White Blood Cell Count 3.4 10^3/uL (4.8-10.8)
[2023-09-10] MEDS: TYLENOL 650 MG PO (06:23)
--- NOTE | 2023-09-10 06:38 | W.PN.GS2 ---
Today's Communication / Plan
-
Dispo planning
Assessment / Plan
-
This is a 38-year-old female postoperative day 1 from a laparoscopic appendectomy. Doing well, expected postoperative course.
Will advance diet, and likely discharge today
No need for postop antibiotics.
Time Spent
Total Time Spent with Patient (in minutes): 15
Subjective Data
-
Date of Service: September 10, 2023
Interval Events:
No acute events overnight. Slept well. Pain Controlled, intermittent crampy abdominal pain. Denies Nausea/Vomiting. Tolerating diet.
Objective Data
-
Intake and Output
09/08/23 09/09/23 09/10/23
06:59 06:59 06:59
Intake Total 700 / 700
Balance 700 / 700
Intake:
Oral fluids 600 / 600
IV fluids (Total) 100 / 100
Normosol 100 / 100
Other:
Number of approximated MODERATE 1
amounts of urine
Vital Signs
Temp Pulse Resp BP Pulse Ox
97.4 F 66 16 111/71 97
09/10/23 03:20 09/10/23 03:20 09/10/23 03:20 09/10/23 03:20 09/10/23 03:20
Lab Results
09/10/23 05:32
Calcium 8.3 mg/dl (8.4-10.2) L 09/09/23 14:00
Total Bilirubin 0.3 mg/dl (0.2-1.3) 09/09/23 14:00
AST 20 U/L (14-36) 09/09/23 14:00
ALT 12 U/L (0-35) 09/09/23 14:00
Alkaline Phosphatase 57 U/L (38-126) 09/09/23 14:00
Total Protein 6.0 g/dl (6.3-8.2) L 09/09/23 14:00
Albumin 3.6 g/dl (3.5-5.0) 09/09/23 14:00
Physical Exam
-
GENERAL/NEURO: Awake, Alert, no distress
CHEST: Unlabored breathing on RA
ABDOMEN: Soft, appropriately tender, Non-Distended, incisions clean dry and intact.
[2023-09-10 06:47] LABS: Blood Urea Nitrogen 10 mg/dl (7-17); Calcium 7.9 mg/dl (8.4-10.2); Carbon Dioxide 26 mmol/L (22-30); Chloride 105 mmol/L (98-107); Glucose 123 mg/dl (70-99); Sodium 134 mmol/L (135-145); eGFR > 60.00
[2023-09-10 07:46] VITALS: BP 120/71
--- NOTE | 2023-09-10 09:31 | CM ---
Patient seen bedside.
S/p appendectomy.
Patient lives with spouse in a 2 story home with.
3 children.
Independent prior to admission.
Denies d/c needs.
Requested ice pack, PCT made aware.
PCP: Dr Perry
Pharmacy: [facility]
Plan: home no needs.
--- NOTE | 2023-09-11 12:38 | W.DS.TRANS ---
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
-
Discharge Instructions:
Discharge Diagnosis/Procedures Acute appendicitis. Laparoscopic appendectomy.
Diet No restrictions
Activity No strenuous activity
Driving Restrictions As prior to admission
Bathing Restrictions OK to Shower
Instructions:
Stand-Alone Forms:
Changes to Home Medications: No
Discharge Medications:
DC Medications w/original date entered in [employer]
escitalopram oxalate 10 mg tablet (Lexapro) 10 mg PO DAILY 09/09/23
nitrofurantoin monohydrate/macrocrystals 100 mg capsule (Macrobid) 100 mg PO BID 09/09/23
acetaminophen 325 mg tablet 650 mg PO Q6HPRN PRN mild pain #14 tabs 09/10/23
tramadol 50 mg tablet 25 mg PO Q6HPRN PRN severe pain/breakthrough pain #8 tabs 09/10/23
Home Medication Changes
Pending Results: No
== END 2023-09-10 10:18 | disposition home or self-care (01) ==
LOC: SDS 17:32
PROVIDERS: Nurse Practitioner; ATTENDING PHYSICIAN Surgery; EMERGENCY PHYSICIAN Emergency Medicine; FAMILY PHYSICIAN Family Medicine
DX: K38.8 Other specified diseases of appendix (principal)
CPT/HCPCS: 44970; 88304; 80048; 80053; 81003; 83690; 85025; 96365; 99285

== ENCOUNTER 2024-05-06 14:33 | Emergency (ER) | payer OTHER, SELFPAY ==
[2024-05-06 14:47] VITALS: BP 120/69
[2024-05-06 15:10] LABS: % Basophils 0.2 % (0-2); % Immature Granulocytes 0.2 % (0-0.5); % Monocytes 6.1 % (1.7-9.3); % Neutrophils 73.5 % (42.2-75.2); Absolute Eosinophils 0.1 10^3/uL (0-0.7); Absolute Lymphocytes 1.6 10^3/uL (1.2-3.4); Absolute Monocytes 0.5 10^3/uL (0.1-0.6); Hematocrit 36.9 % (37.0-47.0); Hemoglobin 12.8 g/dL (12.0-16.0); Mean Corp Hgb Conc. 34.7 g/dL (33.0-37.0); Mean Corpuscular Hgb 31.7 pg (27.0-31.0); Mean Corpuscular Volume 91.3 fL (81.0-99.0); Mean Platelet Volume 10.6 fL (7.4-10.4); Nucleated Red Blood Cells % 0 %; Platelet Count 199 10^3/uL (130-400); Red Blood Cell Count 4.04 10^6/uL (4.20-5.40); Red Cell Dist. Width 12.9 % (11.5-14.5); White Blood Cell Count 8.2 10^3/uL (4.8-10.8)
[2024-05-06 15:18] LABS: HCG, Serum Qualitative Screen Negative
[2024-05-06 15:22] LABS: ALT (SGPT) 14 U/L (0-35); AST (SGOT) 22 U/L (14-36); Alkaline Phosphatase 45 U/L (38-126); Blood Urea Nitrogen 20 mg/dl (7-17); Calcium 8.6 mg/dl (8.4-10.2); Carbon Dioxide 26 mmol/L (22-30); Chloride 107 mmol/L (98-107); Glucose 103 mg/dl (70-99); Potassium 4.4 mmol/L (3.5-5.1); Sodium 142 mmol/L (135-145); Total Bilirubin 0.3 mg/dl (0.2-1.3); Total Protein 6.5 g/dl (6.3-8.2); eGFR > 60.00
[2024-05-06 15:35] LABS: Troponin I < 0.012 ng/ml
[2024-05-06 16:21] VITALS: BMI 31.3
--- NOTE | 2024-05-06 16:37 | ED.GENMED ---
History of Present Illness
General
Chief Complaint: Chest Pain
Source: patient
Exam Limitations: none
Time Seen by Provider: 05/06/24 16:20
Nursing documentation reviewed up to this point in time: agreed with
History of Present Illness
History of Present Illness:
38-year-old female who has a history of anxiety states at 11:30 AM she awakened and felt 'out of it.' She was taking a shower at 1 PM and developed chest pressure 'like someone was sitting on my chest.' Her was with her shortly after that
and her Apple Watch showed that her heart rate went up to 150 for several seconds. She states the symptoms have happened in the past, last time was a year and a half ago and she wore a Holter monitor that showed 2 episodes of fleeting tachycardia.
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 She denies CP, SOB, palpitations at this time and states 'it's probably from anxiety,' at bedside states 'she has a really bad problem
with anxiety.' Pt denies any particular anxiety provoking issues. She feels 'fine' now.
Past History
Past History
ED Past Medical History: Psychiatric (anxiety)
ED Past Surgical History: None
Social History
Tobacco: Non-smoker
Alcohol: Occasional
Personal:
Living: with family
Review of Systems
Review of Systems
Allergies reviewed?: Yes
All Other Systems: ROS reviewed and negative except as documented in HPI and ROS
Constitutional: Denies fever
Respiratory: Reports trouble breathing
Cardiac: Reports chest pain and palpitations; Denies syncope
ABD/GI: Denies abdominal pain, nausea or vomiting
: Reports no symptoms
Musculoskeletal: Reports no symptoms
Skin: Reports no symptoms
Neurological: Reports no symptoms
Phy Exam
Physical Exam
Physical Exam:
GENERAL: No acute distress. A&Ox3.
CONSTITUTIONAL: Afebrile.
EYES: Clear, conjunctivae normal
ENMT: moist mucus membranes, Pharynx nl
RESPIRATORY: Regular respirations, nonlabored, lungs clear.
CARDIOVASCULAR: Regular rate and rhythm, no murmurs, no rubs.
GI: Soft, nontender
MUSCULOSKELETAL: Moves with ease. Well perfused.
SKIN: Warm, dry, pink
PSYCH: Normal mood and affect. Well kept, interactive and appropriate
NEUROLOGIC: Awake, alert and oriented. No focal neurological deficits
Scores
Heart Score for Chest Pain Patients
STEMI patient?: Not applicable
Course
Orders/Labs/Results
Orders:
Orders
05/06/24 14:35
EKG [Electrocardiogram (*1)] Urgent
Reason for Study: Chest Pain
EKG- Treatment ONCE
05/06/24 14:51
Test Result ONCE
05/06/24 14:59
CBC/With Diff [Complete Blood Count/With Diff] Urgent
Comprehensive Metabolic Panel Urgent
HCG, Serum Qualitative Screen Urgent
Troponin I Urgent
05/06/24 16:31
Troponin I Urgent
Abnormal Lab Results
05/06/24
14:59
RBC 4.04 L 10^6/uL
(4.20-5.40)
Hct 36.9 L %
(37.0-47.0)
MCH 31.7 H pg
(27.0-31.0)
MPV 10.6 H fL
(7.4-10.4)
Lymphocytes % 19.0 L %
(20.5-51.1)
BUN 20 H mg/dl
(7-17)
Glucose 103 H mg/dl
(70-99)
05/06/24 14:59
05/06/24 14:59
Vital Signs
Initial and Last Documented VS:
Initial Vital Signs
Temp Pulse Resp BP Pulse Ox
98.3 F 57 16 120/69 98
05/06/24 14:47 05/06/24 14:47 05/06/24 14:47 05/06/24 14:47 05/06/24 14:47
Last Documented Vital Signs
Temp Pulse Resp BP Pulse Ox
98.3 F 57 16 120/69 98
05/06/24 14:47 05/06/24 14:47 05/06/24 14:47 05/06/24 14:47 05/06/24 14:47
MDM/Problems Addressed
Differential Diagnosis Includes:
anxiety, tachycardia
MDM/Problems Addressed:
38-year-old female who has a history of anxiety states at 11:30 AM she awakened and felt 'out of it.' She was taking a shower at 1 PM and developed chest pressure 'like someone was sitting on my chest.' Her was with her shortly after that
and her Apple Watch showed that her heart rate went up to 150 for several seconds. She states the symptoms have happened in the past, last time was a year and a half ago and she wore a Holter monitor that showed 2 episodes of fleeting tachycardia.
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 She denies CP, SOB, palpitations at this time and states 'it's probably from anxiety,' at bedside states 'she has a really bad problem
with anxiety.' Pt denies any particular anxiety provoking issues. She feels 'fine' now.
EKG Sinus bradycardia
CBC normal
CMP normal
Troponin #1 normal
hCG negative
Troponin #2 normal
Patient admits she is embarrassed for coming and states she feels she had an anxiety attack.
*Critical Care Note
Total Time (30-74mins, 75-104mins- exclusive of procedures): Not Applicable
ED Attending Note
-
Portions of this chart may have been created with voice recognition software.� Occasional wrong word or��sound alike� substitutions may have occurred due to the inherent limitations of voice recognition software.
Discharge Plan
Departure
Patient Disposition: Home (Routine Discharge)
Date of Disposition: 05/06/24
Time of Disposition: 16:32
Patient with high blood pressure during this ER visit?: No
Condition: Good
Discharge Problem:
Atypical chest pain
Instructions: Chest Pain That Is Not Caused by the Heart (DC), Anxiety, Adult ED
Prescriptions:
No Action
escitalopram oxalate [Lexapro] 10 mg Tablet
10 mg PO DAILY
nitrofurantoin monohyd/m-cryst [Macrobid] 100 mg Capsule
100 mg PO BID
Patient Comments:
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
acetaminophen [acetaminophen] 325 mg tablet
650 mg PO Q6HPRN PRN (Reason: mild pain) Qty: 14 0RF
tramadol 50 mg tablet
25 mg PO Q6HPRN PRN (Reason: severe pain/breakthrough pain) Qty: 8 0RF
Referrals:
NONE,* [Family Provider] -
Rickey Alfaro MD [Active] - As needed
Activity Restrictions/Additional Instructions:
As we discussed, see the web marketing analyst if your chest pains and heart racing episodes continue.
Interventions
Interventions:
*Risk Screen - Suicide Last Done: 05/06/24 14:47
*General Assessment Last Done: 05/06/24 14:47
*Neglect/Abuse Screening Last Done: 05/06/24 14:47
ED- Fall Risk Assessment Last Done: 05/06/24 16:21
*ED COVID-19 Vaccine History Last Done: 05/06/24 16:21
*Nursing Disposition Last Done: 05/06/24 16:39
ED- Cardiac Assessment Last Done: 05/06/24 16:21
Discharge Date and Time
Discharge Date/Time: 05/06/24 16:39
Print Language: TURKMEN
[2024-05-06 17:05] LABS: Troponin I < 0.012 ng/ml
== END 2024-05-06 16:39 | disposition home or self-care (01) ==
LOC: EMR 14:33
PROVIDERS: Registered Nurse; EMERGENCY PHYSICIAN Emergency Medicine
DX: R07.89 Other chest pain (principal); R00.2 Palpitations; F41.9 Anxiety disorder, unspecified; Z88.6 Allergy status to analgesic agent; Z88.2 Allergy status to sulfonamides; Z88.8 Allergy status to other drugs, medicaments and biological substances
CPT/HCPCS: 99283; 80053; 84484; 84703; 85025; 93005